=== PATIENT | male | born 1960 | race Caucasian/White ===

== ENCOUNTER 2017-10-04 15:24 | Emergency (ER) | payer SELFPAY ==
[2017-10-04 16:29] LABS: #Eosinphils 0.2 thou/uL (0.0-0.7); #Lymphocytes 1.5 thou/uL (1.20-3.40); #Monocytes 0.3 thou/uL (0.11-0.59); %Basophils 0.8 % (0.0-1.0); %Eosinophils 4.3 % (0.0-10.0); %Lymphocytes 30.3 % (21.0-51.0); %Monocytes 6.3 % (0.0-10.0); %Neutrophils 58.4 % (42.0-75.0); Hemoglobin 14.9 g/dL (14.0-18.0); Mean Corpuscular HGB CONC 36.3 g/dL (32.0-36.0); Mean Corpuscular Hemoglobin 33.1 pg (27.0-31.0); Mean Corpuscular Volume 91.3 fL (78.0-98.0); Mean Platelet Volume 7.8 fL (7.4-10.4); Platelet Count 143 thou/uL (130-400); Red Blood Cell (RBC) Count 4.51 mill/uL (4.70-6.10); White Blood Cell (WBC) Count 5.1 thou/uL (4.8-10.8)
[2017-10-04 16:49] LABS: ALT (SGPT) 37 U/L (8-55); AST (SGOT) 29 U/L (5-34); Albumin 4.4 g/dL (3.5-5.0); Alkaline Phosphatase 70 U/L (40-150); Anion Gap 12 mmol/L (10-20); BUN (Urea Nitrogen) 15 mg/dL (8.4-25.7); Bilirubin, Total 1.3 mg/dL (0.2-1.2); Calc. Creatinine Clearance 0 mL/min (70-130); Calcium 9.4 mg/dL (7.8-10.44); Carbon Dioxide 26 mmol/L (22-29); Chloride 104 mmol/L (98-107); Estimated GFR-MDRD 70; Globulin 2.8 g/dL (2.4-3.5); Glucose 86 mg/dL (70-105); Potassium 3.8 mmol/L (3.5-5.1); Protein, Total 7.2 g/dL (6.0-8.3); Sodium 138 mmol/L (136-145)
[2017-10-04 16:54] LABS: CKMB 0.8 ng/mL (0-6.6); Troponin I Less than 0.010 ng/mL (< 0.028)
== END 2017-10-04 17:18 | disposition home or self-care (01) ==
LOC: ERS 15:24
DX: I10 Essential (primary) hypertension (principal)
CPT/HCPCS: 36415; 36416; 80053; 82553; 84484; 85025; 93005

== ENCOUNTER 2017-12-30 09:43 | Emergency (ER) | payer SELFPAY ==
[2017-12-30 10:11] LABS: #Eosinphils 0.2 thou/uL (0.0-0.7); #Lymphocytes 1.4 thou/uL (1.20-3.40); #Monocytes 0.4 thou/uL (0.11-0.59); #Neutrophils 3.9 thou/uL (1.40-6.50); %Basophils 0.8 % (0.0-1.0); %Eosinophils 2.6 % (0.0-10.0); %Monocytes 5.9 % (0.0-10.0); %Neutrophils 66.6 % (42.0-75.0); Hemoglobin 15.8 g/dL (14.0-18.0); Mean Corpuscular HGB CONC 34.1 g/dL (32.0-36.0); Mean Corpuscular Hemoglobin 32.7 pg (27.0-31.0); Mean Platelet Volume 8.6 fL (7.4-10.4); Platelet Count 170 thou/uL (130-400); RBC Distribution Width 11.9 % (11.5-14.5); Red Blood Cell (RBC) Count 4.83 mill/uL (4.70-6.10); White Blood Cell (WBC) Count 5.9 thou/uL (4.8-10.8)
[2017-12-30] MEDS ORDERED: ISOVUE-370 76%-LOCM 1 ML ONE (10:31)
[2017-12-30] MEDS ORDERED: Iopamidol 370 76% 50 ML VIAL FS ONE (10:31)
[2017-12-30 10:35] LABS: ALT (SGPT) 35 U/L (8-55); AST (SGOT) 30 U/L (5-34); Albumin 4.2 g/dL (3.5-5.0); Alkaline Phosphatase 60 U/L (40-150); Anion Gap 11 mmol/L (10-20); BUN (Urea Nitrogen) 10 mg/dL (8.4-25.7); Bilirubin, Total 1.1 mg/dL (0.2-1.2); Calc. Creatinine Clearance 0 mL/min (70-130); Carbon Dioxide 21 mmol/L (22-29); Chloride 107 mmol/L (98-107); Estimated GFR-MDRD 73; Glucose 105 mg/dL (70-105); Lipase 15 U/L (8-78); Potassium 4.2 mmol/L (3.5-5.1); Protein, Total 7.2 g/dL (6.0-8.3); Sodium 135 mmol/L (136-145)
[2017-12-30] MEDS ORDERED: Ondansetron HCl/PF 4 MG/2 ML Vial ONE ×2 (10:37→10:38)
--- NOTE | 2017-12-30 12:58 | CT ---
CT OF ABDOMEN AND PELVIS PERFORMED WITH CONTRAST ENHANCEMENT: COMPARISON: 11/07/13 study. HISTORY: Abdominal pain and bloating x 2 days. FINDINGS: The lung bases are clear of any focal infiltrative process. There is linear change which appears to represent some scar. The liver shows diffuse fatty changes and measures 16.7 cm in length. The spleen is 12.4 cm. Pancre as and gallbladder regions appear unremarkable. Right and left adrenal glands and right and left kidneys are normal in size and appearance. There is no significant periaortic or mesenteric adenopathy. Some mild diverticulosis of the descending colo n. Slightly more pronounced changes of the sigmoid colon without evidence of inflammatory process. An appendix is not definitely identified. No free fluid, adenopathy, or mass within the pelvis. Review of osseous structures show arthritic change of the spine. IMPRESSION: 1. Fatty changes of the liver with borderline spleen size. 2. Colonic diverticulosis. POS: [facility]
== END 2017-12-30 13:14 | disposition home or self-care (01) ==
LOC: ERS 09:43
DX: R10.9 Unspecified abdominal pain (principal); R11.0 Nausea; I10 Essential (primary) hypertension
CPT/HCPCS: 36415; 74177; 80053; 83690; 85025; 96361; 96374; J2405

== ENCOUNTER 2021-05-15 11:22 | Emergency (ER) | payer SELFPAY | END 2021-05-15 13:42 | disposition home or self-care (01) | LOC: ERS 11:22 | DX: B34.9 Viral infection, unspecified (principal); I10 Essential (primary) hypertension | CPT/HCPCS: 71045 ==